=== PATIENT | female | born 1990 | race Caucasian/White ===

== ENCOUNTER 2018-06-15 15:31 | Outpatient (CLI) | payer BC ==
[~2018-06-15 15:31] MED LIST: Gadobenate Dimeglumine 529 MG/1 ML (20ML VIAL) ONE
--- NOTE | 2018-06-15 16:24 | RAD ---
3 VIEWS LUMBOSACRAL SPINE: Date: 06/15/18 COMPARISON: None. HISTORY: Microdiscetomy with low back pain for 6 years. FINDINGS: Lateral views of the lumbosacral spine were performed in neutral, flexion, and extension. The vertebr al bodies and intervertebral discs demonstrate normal height and alignment without fracture or sublux ation. Alignment is unchanged with flexion and extension. No significant degenerative changes are pre sent. IMPRESSION: Unremarkable exam. POS: DAVINA
--- NOTE | 2018-06-15 17:04 | MRI ---
MRI LUMBAR SPINE WITH AND WITHOUT CONTRAST: HISTORY: Microdiskectomy. Low back pain for six years. COMPARISON: None. TECHNIQUE: Multiplanar, multisequence MR images were obtained of the lumbar spine with and without IV contrast. FINDINGS: There is disk desiccation of the L5-S1 intervertebral disk. The other disks have normal signal. The vertebral bodies demonstrate normal height without fracture or subluxation. The conus medullaris te rminates normally at L1. The prevertebral and paraspinal soft tissues are unremarkable. T12-L1 THROUGH L4-L5: Unremarkable. L5-S1: There is a moderate to large central protrusion, extending into the central canal approximate ly 8 mm. There is enhancement surrounding the right L5 nerve root and extending adjacent to the righ t S1 nerve root, adjacent to the disk protrusion. Moderate central canal stenosis. Moderate right a nd mild left neural foraminal stenosis. IMPRESSION: Disk protrusion at L5-S1 with central canal stenosis and enhancement adjacent to the right-sided nerv e roots at L5 and S1. POS: HARVINDER
== END 2018-06-15 15:32 | disposition home or self-care (01) ==
LOC: SCSMRI 15:31
PROVIDERS: ATTEND Neurological Surgery
DX: M51.16 Intervertebral disc disorders with radiculopathy, lumbar region (principal); M48.061 Spinal stenosis, lumbar region without neurogenic claudication; M51.27 Other intervertebral disc displacement, lumbosacral region
CPT/HCPCS: 72100; 72158; A9579